=== PATIENT | female | born 1995 | race Caucasian/White ===

== ENCOUNTER 2019-04-30 18:21 | Emergency (ER) | payer MEDICAID ==
[~2019-04-30] VITALS: Ht 165.1 cm; Wt 54.4 kg
[2019-04-30] MEDS ORDERED: SODIUM CHLORIDE 0.9% 1,000 ML IV ONE (18:51)
[2019-04-30] MEDS ORDERED: FAMOTIDINE (10MG/ML) 2ML VL IV ONE (19:00)
[2019-04-30] MEDS ORDERED: LORazepam 2MG/ML-1ML VIAL IV ONE (19:00)
[2019-04-30] MEDS ORDERED: ONDANSETRON HCL 4 MG/2 ML VIAL IV ONE (19:00)
[2019-04-30 19:06] LABS: Basophils # (auto) 0.1 uL; Basophils % (auto) 0.9 % (0.0-2.0); Eosinophils # (auto) 0 uL; Eosinophils % (auto) 0.3 % (0.0-7.0); Hematocrit 42.5 % (36.0-46.0); Hemoglobin 14.7 g/dL (12.2-16.2); Lymphocytes # (auto) 1.8 uL; Lymphocytes % (auto) 21.9 % (10.0-50.0); Mean Corpuscular Hemoglobin 32.4 pg (28.0-32.0); Mean Corpuscular Hgb Conc. 34.6 g/dL (32.0-36.0); Mean Corpuscular Volume 93.5 fL (80.0-100.0); Monocytes # (auto) 0.5 uL; Monocytes % (auto) 6.1 % (0.0-12.0); Neutrophils # (auto) 5.7 uL; Neutrophils % (auto) 70.8 % (37.0-80.0); Nucleated Red Blood Cells % 0.1 %; Platelet Count (auto) 319 10^3/uL (140-450); Red Blood Cells 4.54 10^6/uL (4.0-5.20); Red Cell Distribution Width 12.4 % (11.8-14.3)
[2019-04-30 19:24] LABS: Albumin 4.7 g/dL (3.4-5.0); BUN/Creatinine Ratio 7.1; Calcium 9.2 mg/dL (8.5-10.1); Potassium 3.8 mmol/L (3.5-5.1)
[2019-04-30 19:27] LABS: Bilirubin, Total 0.8 mg/dL (0.2-1.0); Total Protein 8.5 g/dL (6.4-8.2)
[2019-04-30 21:25] VITALS: BP 122/72
== END 2019-04-30 21:29 | disposition home or self-care (01) ==
LOC: ER 18:24
DX: F10.239 Alcohol dependence with withdrawal, unspecified (principal); R19.7 Diarrhea, unspecified; Y90.9 Presence of alcohol in blood, level not specified
CPT/HCPCS: 36415; 80053; 80320; 85025; 94761; 96361; 96374; 96375; 99283; J2060; J2405; J3490; J7030